=== PATIENT | male | born 1975 | race Caucasian/White ===

== ENCOUNTER 2024-07-09 21:49 | Emergency (ER) | payer SELFPAY ==
[2024-07-09 21:52] VITALS: BP 143/86; PULSE 111; RESP 24; TEMP 36.2; O2SAT 97
--- NOTE | 2024-07-09 22:33 | ED.GENADULT ---
HPI - General Adult General Chief complaint: Shortness of Breath/Dyspnea Stated complaint: short of breath, right arm pain Time Seen by Provider: 07/09/24 22:00 History of Present Illness HPI narrative: This 48-year-old male comes in with a painful red distal right little finger. These symptoms arose since this morning. He has a subungual hematoma now at the base of the nail of the right little finger. He does not report any injury event related to this. He has ecchymosis from a small hematoma on the dorsal aspect of the distal part of his thumb and there is surrounding erythema. He also reports some brief episodes of chest discomfort but denies having any nausea, vomiting, lightheadedness, shortness of breath, or diaphoresis. He does not have any exercise intolerance and no cardiac history. He attributes this to some anxiety. He also reports some reflux symptoms. Related Data Home Medications ?Medication ?Instructions ?Recorded ?Confirmed albuterol sulfate PO 07/09/24 alprazolam .ROUTE 07/09/24 metoprolol succinate PO 07/09/24 oxycodone PO 07/09/24 Allergies Allergy/AdvReac Type Severity Reaction Status Date / Time Sulfa (Sulfonamide Allergy Unknown Verified 07/09/24 21:58 Antibiotics) Review of Systems Status of ROS: Reports: 10 or more systems reviewed and unremarkable except as noted in History and below Narrative: Constitutional: No fevers, no weight gain or loss. Eyes: No discharge. No vision changes. HENT: No congestion, no sore throat, no ear pain. Cardiovascular: No palpitations. Respiratory: No shortness of breath, no wheezes, no cough. Gastrointestinal: No abdominal pain, no vomiting, no diarrhea. Genitourinary: No dysuria, no hematuria. Musculoskeletal: Normal range of motion. Pain in redness with bruising in his right little finger as described above. Skin: No rashes, no pruritis. Neurological: No dizziness, weakness, sensory change, speech change. Endo/Heme/Allergies: No bruising or bleeding. No polydipsia. Pysch: no suicidality, no insomnia. All other systems reviewed and are negative. PFS PFS Social History Smoking Status: Never smoker Second hand tobacco smoke exposure: No How often do you have a drink containing alcohol: never AUDIT-C Alcohol total score: 0 Non-prescribed substance use: denies use Exam Narrative: Exam Narrative: Constitutional: Well-developed, well-nourished, no acute distress. HEENT: Normocephalic, atraumatic. Neck: Normal range of motion. Nontender. Supple. Heart: Intact distal pulses. Lungs: No chest discomfort. No rhonchi, or rales. Bilateral expiratory wheezes. Abdomen: Nontender. Back: Normal range of motion. Extremities: Normal range of motion. The right little finger has bruising and a small hematoma over the dorsal aspect of the distal compartment of that finger involving the base of the nail and they area just proximal to the the nail. there is erythema extending into the middle portion of the finger. Skin: Intact. No rash. Warm. No erythema or pallor. Neurologic: No altered sensation. No weakness. Alert and oriented. Psychiatric: No suicidality. No anxiety or depression. No insomnia. Nursing notes and vitals signs are reviewed. Const: Vital Signs, click to edit/add: Vital Signs - 24 hr 07/09/24 21:52 Temperature 97.1 F L Pulse Rate [Pulse Oximeter] 111 H Respiratory Rate 24 Blood Pressure [Le ft Upper Arm] 143/86 H Pulse Oximetry 97 Oxygen Delivery Me thod Room Air Course Vital Signs Vital signs: Initial Vital Signs Temperature 97.1 F L 07/09/24 21:52 Temperature Source Temporal Artery Scan 07/09/24 21:52 Pulse Rate 111 H 07/09/24 21:52 Respiratory Rate 24 07/09/24 21:52 Blood Pressure 143/86 H 07/09/24 21:52 Blood Pressure Mean 105 07/09/24 21:52 Blood Pressure Position Sitting 07/09/24 21:52 Pulse Oximetry 97 07/09/24 21:52 Oxygen Delivery Method Room Air 07/09/24 21:52 Vital Signs Temperature 97.1 F L 07/09/24 21:52 Pulse Rate 111 H 07/09/24 21:52 Respiratory Rate 24 07/09/24 21:52 Blood Pressure 143/86 H 07/09/24 21:52 Pulse Oximetry 97 07/09/24 21:52 Oxygen Delivery Method Room Air 07/09/24 21:52 Temperature 97.1 F L 07/09/24 21:52 Pulse Rate 111 H 07/09/24 21:52 Respiratory Rate 24 07/09/24 21:52 Blood Pressure 143/86 H 07/09/24 21:52 Pulse Oximetry 97 07/09/24 21:52 Oxygen Delivery Method Room Air 07/09/24 21:52 Medical Decision Making [facility] Narrative Medical decision making narrative: This patient has a painful right little finger and though there is bruising typical of an injury event the patient denies having any such injury or overuse activity. There is also erythema and rather exquisite tenderness suggestive of infection. This is not likely a felon Or herpetic claudy. I did decide to treat with an antibiotic. There is not an obvious benefit to attempt to drain the hematoma. The patient does have bilateral wheezes because of asthma symptoms which are not new for him. He also is reporting some reflux symptoms and requested a GI cocktail. This was administered and also a oral dose of dexamethasone was given. The patient does have inhalers that he can use as needed and directed. I did provide an [facility] prescription for Augmentin. Discharge Plan Discharge Clinical Impression: Finger infection Patient Disposition: Home, Self-Care Condition: Stable Additional Instructions: take medication as prescribed. Follow up with MD return if worsening symptoms occur. Prescriptions: No Action metoprolol succinate PO alprazolam .ROUTE albuterol sulfate [Ventolin] PO oxycodone PO Stand Alone Forms: [facility] Info Instructions
[2024-07-09] MEDS: GI COCKTAIL (VISC LIDO/ANTACID) 30 ML PO (22:37)
[2024-07-09] MEDS: dexAMETHasone 10 MG/ML inj PO (22:37)
[2024-07-09 22:41] VITALS: O2SAT 97
[2024-07-09 22:49] LABS: PCR FLU A Negative PCR FLU A (Negative); PCR FLU B Negative PCR FLU B (Negative); PCR RSV POSITIVE PCR RSV (Negative); SARS PCR* Negative SARS-CoV-2 (Negative)
[2024-07-09 22:52] VITALS: BP 132/74; PULSE 99; RESP 24; TEMP 36.7; O2SAT 97
--- OUTSIDE RECORDS SUMMARY | 2024-07-09 22:59 | XMS_ITS | Data Portability ---
Author Organization [facility] [place] Office Address [address] [address] Assessment No assessment recorded. Plan of Treatment Reminders Order Date Submit Date Provider Last Modified By Organization Details Last Modified Time Details Appointments None recorded. Lab None recorded. Referral pain management referral 2015 016 [facility], [address] [place], [address], 6 14:58:21 Procedures None recorded. Surgeries None recorded. Imaging None recorded. Medication Orders alprazolam 2 mg tablet 2015 016 [id number], [address] [place], [place], [id number], 6 15:48:20 paroxetine 20 mg tablet 2015 016 [id number], [address] [place], [place], [phone], 6 14:14:18 Patient TargetsNo targets recorded. Patient Instructions Encounter Date Encounter Id Patient Instructions Last Modified By Organization Details Last Modified Time 08/08/2015 [id number] controlling your asthma: care instructions Not available 08/08/2015 14:24:53 learning about asthma Not available 08/08/2015 14:24:53 chronic pain: ca re instructions Not available 08/08/2015 14:24:53 high blood pressure: care instructions Not available 08/08/2015 14:24:53 learning about high blood pressure Not available 08/08/2015 14:24:53 attention defici t hyperactivity disorder (ADHD) in adults: care instructions Not available 08/08/2015 14:24:53 Reason for Referral Pain Management Referral for Chronic pain chronic neck pain Referring Physician: Angy Ardon [facility], Encounter Date: 08/08/2015 Problems Name Problem SNOMED Code Status Onset Date Resolution Date Notes Provider Name and Address Organization Details Recorded Time Anxiety 78486819 Active Angy Almazanralph [facility] 6 14:14:18 Chronic pain 14550026 Active Angy Ardon [facility] 6 14:14:18 Asthma 099539314 Active Angy Ardon [facility] 6 14:14:18 Essential hypertension 03890103 Active Angy Ardon [facility] 6 14:14:18 Adult attention deficit hyperactivity disorder 982248083 Active Angy Ardon [facility] 6 14:14:18 Problem Notes None recorded. Medical Equipment None Reported. Allergies No known drug allergies Medications Name Sig Start Date Stop Date Status Note LastModified by Organization Details LastModified Time metoprolol tartrate 100 mg tablet Take 1 tablet every day by oral route for 30 days. active Not Available Not Available No t Available paroxetine 20 mg tablet Take 1 tablet every day by oral route for 30 days. 016 active Not Available Not Available Not Avai lable alprazolam 2 mg tablet Take 1 tablet every day by oral route as needed for 30 days. 016 active Not Available Not Available Not Avai lable Vitals Date Recorded Oxygen saturation Oxygen saturation in Arterial blood by Pulse oximetry Body weight Heart rate Body temperature Systolic blood pressure Diastolic blood pressure Provider Name and Address Organization Details Last Updated DateTime 6 97 % 97 % 755211. 24749 g 122 /min 97.5 [degF] 155 mm[Hg] 100 mm[Hg] Ирина Arias [facility] 6 12:49:22 Social History Question Answer Notes LastModified by Organizat ion Details LastModified Time Tobacco Smoking Status Never Smoker Not Available [employer] 03/22/2020 03:30:10 Do You Have An Advance Directive? No [id number] Information not available 03/22/2020 What Is Your Level Of Alcohol Consumption? None [id number] Information not available 03/22/2020 What Is Your Level Of Caffeine Consumption? Moderate [id number] Information not available 03/22/2020 How Much Tobacco Do You Chew? None [id number] Information not available 03/22/2020 Are You Currently Employed? No [id number] Information not available 03/22/2020 Education 12 Information no t available 08/08/2015 Hard Of Hearing Or Deaf In One Or Both Ears? No Information not available 08/08/2015 Legally Blind In One Or Both Eyes? No Information no t available 08/08/2015 Live Alone Or With Others? With Others Information not available 08/08/2015 What Is Your Relationship Status? [id number] Information not available 03/22/2020 Seat Belts Used Routinely Yes Information not available 08/08/2015 Are You Sexually Active? Yes [id number] Information not available 03/22/2020 General Stress Level Low Information not available 08/08/2015 Do You Use Sunscreen Routinely? Yes [id number] Information not available 03/22/2020 Sex: Unknown Functional Status Question Answer Note LastModified by Organization D etails LastModified Time Are you able to care for yourself? Yes [id number] Information n ot available 03/22/2020 What is your exercise level? None [id number] Information not available 03/22/2020 Mental Status None recorded. Family History Nothing Reported. Medical History Condition Response Coronary Artery Disease N Other N Gout N Kidney Stones N Blood Diseases N Breast Cancer N Blood Transfusion N COPD Y Depression N Lung Disease N Defects or Inherited Disease N Developmental or Behavioral Disorders N Breast Problem N Anxiety Disorder N Muscle, Joint, or Bone Problems N Obesity Y Vision or Eye Problems N Arthritis N Head Injury/Concussion N Polyps N Congenital Anomalies N Cancer N Varicosities N Stroke N Endometriosis N Bladder or Kidney Problems N High Cholesterol N Liver Disease N Headaches N Fibromyalgia N Kidney Disease N Allergies/Hayfever N Heart Problems N Ear or Hearing Problems N Hospitalizations N Thyroid Problems N GI Problems N ADD/ADHD N Skin Problems N Eating Disorder N Anemia N Constipation N Mental Illness N Ovarian Cancer N Diabetes N Seizures/Epilepsy N Tuberculosis N AIDS/HIV N Congestive Heart Failure (CHF) N Eczema N Diverticulitis N Abuse/Domestic Violence N Asthma N Reflux/GERD N Hepatitis N Pulmonary Embolism N Hypertension Y Chronic Ear Infections N Osteoporosis N Chicken Pox N Autism Spectrum Disorder (ASD) N Thrombophilias N Past Encounters Encounter ID Performer Location Encounter Start Date Encounter Closed Date Diagnosis/Indication Diagnosis SNOMED-CT Code Diagnosis ICD10 Code Diagnosis Note [id number] Angy Joneso Office [address] [place] [address] 08/08/2015 12:05:31 08/08/2015 13:05:12 Anxiety 00150849 F41.9 obn reviewed, discussed with patient that psychiatry would be helpful in his case, he refuses at this time. UDS at next visit. Discussed tapering of xanax, pt will think about it. Restart paroxetine as below, black box warning reviewed Chronic pain 16027402 G8 9.29 pt aware we do not manage chronic pain, will refer to pain management for his chronic neck pain Asthma 571920686 J45.90 9 continue inhalers as rxed by pulmonolog y Essential hypertension 62009642 I10 will not be adjusting meds today as pt does not know what he is taking, pt to bring bottle to next visit Adult atte ntion deficit hyperactivity disorder 552477762 F90.9 discussed with patient he will need to bring previous medical records regarding his diagnosis of adult ADHD, pt states he will bring them Health Concerns Section Related Observation LastModified by Organization Detai ls LastModified Time None Recorded Concern Status LastModified by Organization Details LastModified Time None Recorded Advance Directives Directive N: Payers Encounter Date Sequence Insurance Name Policy Number Policy Cabrera Covered Member ID Cabrera Member ID Guarantor Name 08/08/2015 1 [place] Walter Quarles [id number] Walter Quarles Notes Date Note Type Note Provider Name and Address Organization Details Recorded Time 08/08/2015 text/html New pt with extensive history. Has HTN, on what sounds like metoprolol but pt not sure, did not take any medication today. Reports some left sided paralysis in Mar 2015 that almost completely resolved with TPA in the ER but pt states he did not have a stroke. Has been in physical therapy to make his left leg stronger for past three months and feels his paralysis is gone, would like to return to work. Is on xanax chronically for anxiety, has anger issues per , was previously on paroxetine which helped. Also has chronic neck pain for which he refuses to get surgery for bulging discs, is interested in pain management. OBN report shows multiple different providers prescribing narcotics, pt states he recently had dental surgery. Would like to get back on percocet and adderall. Also has hx of COPD/asthma, goes to pulmonology. Non-smoker. Angy yañez, [place] [facility] 08/08/2015 14:14:27
--- OUTSIDE RECORDS SUMMARY | 2024-07-09 22:59 | XMS_ITS | Continuity of Care Document ---
Author Organization [facility] Address [address] [place] [address] Encounter [facility] [id number] Date(s): 07/08/24 - 07/08/[address] [phone] Encounter Diagnosis Cough(Discharge Diagnosis) - 07/08/24 Viral illness(Discharge Diagnosis) - 07/08/24 Discharge Disposition: Home or Self Care Attending Physician: Cedric Childs MD Admitting Physician: Cedric Childs MD Referring Physician: Cedric Childs MD Encounter Type: Emergency Allergies, Adverse Reactions, Alerts Substance Criticality Severity Reaction Reaction Severity Status Sulfabenzamide/Sulfacetam sharon/Sulfathiazole High criticality Severe Active Assessment and Plan Extracted from: Title:ED Provider Note Author:Cedric Childs MD Date :07/08/24 Assessment/Plan 1. Cough R05.9 Ordered: THP ondansetron (Zofran), 4 tab, Oral, Tab-Dis, Once, First Dose: 07/08/24 4:10:00 MST, Stop Date: 07/08/24 4:10:00 MST, Physician Stop, STAT Discharge Patient, 07/08/24 4:10:00 MST 2. Viral illness B34.9 Ordered: THP ondansetron (Zofran), 4 tab, Oral, Tab-Dis, Once, First Dose: 07/08/24 4:10:00 MST, Stop Date: 07/08/24 4:10:00 MST, Physician Stop, STAT Discharge Patient, 07/08/24 4:10:00 MST Orders: ondansetron, 4 mg = 1 tab, Oral, Tab-Dis, Once, First Dose: 07/08/24 4:05:00 MST, Stop Date: 07/08/24 4:05:00 MST, Physician Stop, STAT Patient Education Viral Respiratory Infection Viral Respiratory Infection, Mtfl-Fx-Tyyi Follow Up With When Contact Information primary Care Additional Instructions: Medications albuterol 0 Refill(s) Start Date: 07/08/24 Status: Ordered Repeat number: 1 Bystolic 0 Refill(s) Start Date: 07/08/24 Status: Ordered Repeat number: 1 metoprolol succinate 0 Refill(s) Start Date: 07/08/24 Status: Ordered Repeat number: 1 Zofran 0 Refill(s) Start Date: 07/08/24 Status: Ordered Repeat number: 1 Problem List Condition Confirmation Course Effective Dates Status [facility] Informant Cough Confirmed Active Viral illness Confirmed Active Results Laboratory List Name Date Influenza A/B (ID NOW) 07/08/24 SARS-CoV-2 (COVID-19) RNA (ID Now) (COVI D 19 (ID Now)) 07/08/24 Most recent to oldest [Reference Range]: 1 Influenza A -IDNOW [Not Detected] Not De tected (07/08/24 2:22 AM) Influenza B -IDNOW [Flu B RNA Neg] Flu B RNA Neg (07/08/24 2:22 AM) SARS-CoV-2 (COVID-19) RNA (ID Now) [Pres umptive Neg] Presumptive Neg 1 (07/08/24 2:22 AM) 1Interpretive Data: The ID NOW COVID-19 is a rapid molecular NAAT assay. This test has received FDA Emergency Use Authorization for respiratory specimens collected from individuals who are suspected of COVID-19 b their healthcare provider within the first seven days of onset of symptoms. Utilization of this test in other settings, such as testing of asymptomatic patients is not currently within scope of the FDA authorization and would be considered off- label use. A positive result indicates that RNA from SARS-CoV-2 was detected. There is a small possibility of a false-positive result, particularly when used in a population without many cases of COVID-19 infection.Negative results should be treated as presumptive and, if inconsistent with clinical signs and symptoms or if necessary for patient management, should be tested with an alternative method. www.cdc.gov/COVID19 Radiology Reports * Exam Date Time Procedure Performing Provider Status 07/08/24 2:43 AM XR Chest 1 View Auth (Yareli ified) Notes: (XR Chest 1 View) Reason For Exam: Cough XR Chest 1 View Exam:XR CHEST 1 VIEW Date:07/08/2024 5:00 AM [facility] Indication:Cough Comparison:None Findings: The cardiomediastinal silhouette is within normal limits. No evidence of pleural effusion, pneumothorax, or focal consolidation. Impression: No acute cardiopulmonary findings. Electronically signed by: Brian Lopes MD 07/08/2024 04:[address] [facility] Final Dictated by: Brian Lopes MD Dictated DT/TM: 07/08/2024 4:00 am Signed by: Brian Lopes MD Signed (Electronic Signature): 07/08/2024 2:43 am Transcribed by: KRISSY Vital Signs Most recent to oldest [Reference Range]: 1 2 3 Temperature Temporal Artery [36-38 Deg C] 36.9 Deg C (07/08/24 2:08 AM) Peripheral Pulse Rate [60-100 bpm] 78 bpm (07/08/24 2:08 AM) Heart Rate Monitored [60-100 bpm] 71 bpm (07/08/24 4:15 AM) 69 bpm (07/08/24 4:00 AM) 73 bpm (07/08/24 3:46 AM) Respiratory Rate [12-24 br/min] 20 br/min (07/08/24 4:15 AM) 22 br/min (07/08/24 3:30 AM) 22 br/min (07/08/24 3:15 AM) Blood Pressure [90-120/60-80 mmHg] 146/98mmHg *HI* (07/08/24 4:15 AM) 149/106mmHg *HI* (07/08/24 3:46 AM) 109/75mmHg (07/08/24 3:30 AM) Mean Arterial Pressure, Cuff [65-140 mmHg] 114 mmHg (07/08/24 4:15 AM) 120 mmHg (07/08/24 3:46 AM) 86 mmHg (07/08/24 3:30 AM) Mean Arterial Pressure Cuff [65-140 mmHg] 117 mmHg (07/08/24 3:46 AM) 88 mmHg (07/08/24 3:30 AM) 103 mmHg (07/08/24 3:15 AM) Weight 104.7 kg (07/08/24 2:08 AM) Weight Dosing 104.700 kg (07/08/24 2:08 AM) Social History Social History Type Response Tobacco Never tobacco user T obacco Use:. Sex Sex Representation Male (finding) Hospital Discharge Instructions Patient Education 07/08/2024 05:12:46 Viral Respiratory Infection Viral Respiratory Infection A respiratory infection is an illness that affects part of the respiratory system, such as the lungs, nose, or throat. A respiratory infection that is caused by a virus is called a viral respiratory infection. Common types of viral respiratory infections include: ??? A cold. ??? The flu (influenza). ??? A respiratory syncytial virus (RSV) infection. What are the causes? This condition is caused by a virus. The virus may spread through contact with droplets or direct contact with infected people or their mucus or secretions. The virus may spread from person to person(is contagious). What are the signs or symptoms? Symptoms of this condition include: ??? A stuffy or runny nose. ??? A sore throat or cough. ??? Shortness of breath or difficulty breathing. ??? Yellow or green mucus (sputum). Other symptoms may include: ??? A fever. ??? Sweating or chills. ??? Fatigue. ??? Achy muscles. ??? A headache. How is this diagnosed? This condition may be diagnosed based on: ??? Your symptoms. ??? A physical exam. ??? Testing of secretions from the nose or throat. ??? Chest X-ray. How is this treated? This condition may be treated with medicines, such as: ??? Antiviral medicine. This may shorten the length of time a person has symptoms. ??? Expectorants. These make it easier to cough up mucus. ??? Decongestant nasal sprays. ??? Acetaminophen or NSAIDs, such as ibuprofen, to relieve fever and pain. Antibiotic medicines are not prescribed for viral infections.This is because antibiotics are designed to kill bacteria. They do not kill viruses. Follow these instructions at home: Managing pain and congestion ??? Take gtie-jls-addxkub and prescription medicines only as told by your health care provider. ??? If you have a sore throat, gargle with a mixture of salt and water 3???4 times a day or as needed. To make salt water, completely dissolve ?1 tsp (3???6 g) of salt in 1 cup (237 mL) of warm water. ??? Use nose drops made from salt water to ease congestion and soften raw skin around your nose. ??? Take 2 tsp (10 mL) of honey at bedtime to lessen coughing at night. ??? Do not give honey to children who are younger than 1 year. ??? Drink enough fluid to keep your urine pale yellow. This helps prevent dehydration and helps loosen up mucus. General instructions ??? Rest as much as possible. ??? Do not drink alcohol. ??? Do not use any products that contain nicotine or tobacco. These products include cigarettes, chewing tobacco, and vaping devices, such as e-cigarettes. If you need help quitting, ask your health care provider. ??? Keep all follow-up visits. This is important. How is this prevented? Get an annual flu shot. You may get the flu shot in late summer, fall, or winter. Ask your health care provider when you should get your flu shot. ??? Avoid spreading your infection to other people. If you are sick: ??? Wash your hands with soap and water often, especially after you cough or sneeze. Wash for at least 20 seconds. If soap and water are not available, use alcohol-based hand hospital insurance representative. ??? Cover your mouth when you cough. Cover your nose and mouth when you sneeze. ??? Do not share cups or eating utensils. ??? Clean commonly used objects often. Clean commonly touched surfaces. ??? Stay home from work or school as told by your health care provider. ??? Avoid contact with people who are sick during cold and flu season. This is generally fall and winter. Contact a health care provider if: ??? Your symptoms last for 10 days or longer. ??? Your symptoms get worse over time. ??? You have severe sinus pain in your face or forehead. ??? The glands in your jaw or neck become very swollen. ??? You have shortness of breath. Get help right away if you: ??? Feel pain or pressure in your chest. ??? Have trouble breathing. ??? Faint or feel like you will faint. ??? Have severe and persistent vomiting. ??? Feel confused or disoriented. These symptoms may represent a serious problem that is an emergency. Do not wait to see if the symptoms will go away. Get medical help right away. Call your local emergency services (911 in the [place] Do not drive yourself to the hospital. Summary ??? A respiratory infection is an illness that affects part of the respiratory system, such as the lungs, nose, or throat. A respiratory infection that is caused by a virus is called a viral respiratory infection. ??? Common types of viral respiratory infections include a cold, influenza, and respiratory syncytial virus (RSV) infection. ??? Symptoms of this condition include a stuffy or runny nose, cough, fatigue, achy muscles, sore throat, and fevers or chills. ??? Antibiotic medicines are not prescribed for viral infections. This is because antibiotics are designed to kill bacteria. They are not effective against viruses. This information is not intended to replace advice given to you by your health care provider. Make sure you discuss any questions you have with your health care provider. Document Revised: 2021 Document Reviewed: 2021 [employer] Patient Education ?? 2022 [employer]. 07/08/2024 05:09:40 Viral Respiratory Infection, Vpom-Fq-Iphe Viral Respiratory Infection A viral respiratory infection is an illness that affects parts of the body that are used for breathing. These include the lungs, nose, and throat. It is caused by a germ called a virus. Some examples of this kind of infection are: ??? A cold. ??? The flu (influenza). ??? A respiratory syncytial virus (RSV) infection. What are the causes? This condition is caused by a virus. It spreads from person to person. You can get the virus if: ??? You breathe in droplets from someone who is sick. ??? You come in contact with people who are sick. ??? You touch mucus or other fluid from a person who is sick. What are the signs or symptoms? Symptoms of this condition include: ??? A stuffy or runny nose. ??? A sore throat. ??? A cough. ??? Shortness of breath. ??? Trouble breathing. ??? Yellow or green fluid in the nose. Other symptoms may include: ??? A fever. ??? Sweating or chills. ??? Tiredness (fatigue). ??? Achy muscles. ??? A headache. How is this treated? This condition may be treated with: ??? Medicines that treat viruses. ??? Medicines that make it easy to breathe. ??? Medicines that are sprayed into the nose. ??? Acetaminophen or NSAIDs, such as ibuprofen, to treat fever. Follow these instructions at home: Managing pain and congestion ??? Take rdxq-zii-ngsxqce and prescription medicines only as told by your doctor. ??? If you have a sore throat, gargle with salt water. Do this 3???4 times a day or as needed. ??? To make salt water, dissolve ?1 tsp (3???6 g) of salt in 1 cup (237 mL) of warm water. Makesure that all the salt dissolves. ??? Use nose drops made from salt water. This helps with stuffiness (congestion). It also helps soften the skin around your nose. ??? Take 2 tsp (10 mL) of honey at bedtime to lessen coughing at night. ??? Do not give honey to children who are younger than 1 year old. ??? Drink enough fluid to keep your pee (urine) pale yellow. General instructions ??? Rest as much as possible. ??? Do not drink alcohol. ??? Do not smoke or use any products that contain nicotine or tobacco. If you need help quitting, ask your doctor. ??? Keep all follow-up visits. How is this prevented? Get a flu shot every year. Ask your doctor when you should get your flu shot. ??? Do not let other people get your germs. If you are sick: ??? Wash your hands with soap and water often. Wash your hands after you cough or sneeze. Wash hands for at least 20 seconds. If you cannot use soap and water, use hand hospital insurance representative. ??? Cover your mouth when you cough. Cover your nose and mouth when you sneeze. ??? Do not share cups or eating utensils. ??? Clean commonly used objects often. Clean commonly touched surfaces. ??? Stay home from work or school. ??? Avoid contact with people who are sick during cold and flu season. This is in fall and winter. Get help if: ??? Your symptoms last for 10 days or longer. ??? Your symptoms get worse over time. ??? You have very bad pain in your face or forehead. ??? Parts of your jaw or neck get very swollen. ??? You have shortness of breath. Get help right away if: ??? You feel pain or pressure in your chest. ??? You have trouble breathing. ??? You faint or feel like you will faint. ??? You keep vomiting and it gets worse. ??? You feel confused. These symptoms may be an emergency. Get help right away. Call your local emergency services (911 int [place] ??? Do not wait to see if the symptoms will go away. ??? Do not drive yourself to the hospital. Summary ??? A viral respiratory infection is an illness that affects parts of the body that are used for breathing. ??? Examples of this illness include a cold, the flu, and a respiratory syncytial virus (RSV) infection. ??? The infection can cause a runny nose, cough, sore throat, and fever. ??? Follow what your doctor tells you about taking medicines, drinking lots of fluid, washing your hands, resting at home, and avoiding people who are sick. This information is not intended to replace advice given to you by your health care provider. Make sure you discuss any questions you have with your health care provider. Document Revised: 2021 Document Reviewed: 2021 [employer] Patient Education ?? 2022 [employer]. Follow Up Care 07/08/2024 01:54:34 With:primary Care Address: When: Unknown Physician Emergency department Note * Cedric Childs MD: PERFORM Event Display: ED Note Physician Authored Date: [id number] JESUS ALBERTO VO :1975 Age:48 years Sex:Male Visit Date:07/08/2024 Basic Information Time Seen: Cedric Childs MD / 07/08/2024 02:22 Chief Complaint SOB, with fever and cough X 3 days History Of Present Illness: Patient presents with cough since Saturday which is 3 days now.?? Bring up occasional phlegm.?? He feels some body aches sweats chills and nausea without emesis.?? He has not had a flu shot this year Review of Systems: Constitutional:??no??fever,??no??chills,??no??sweats,??no??weakness Respiratory:??no??shortness of breath,??moderate??cough Cardiovascular:??no??chest pain Additional ROS info: Except as noted in the above Review of Systems and in the History of Present Illness all other systems have been reviewed and are negative or noncontributory.?? Physical Exam Vitals & Measurements T:??36.9?C ??(Temporal Artery)?? HR:??69??(Monitored)?? RR:??22?? BP:??149/106?? SpO2:??94%?? WT:??104.7??kg?? O2 Therapy:??Room air?? General: well-developed, no apparent distress HEENT: PERRLA, EOMI, nares noncongested, OP moist Neck: symmetrical and supple, no lymphadenopathy Resp: clear to auscultation bilaterally; no wheezes, rales, or rhonchi CV: Regular Rate and Rhythm without murmur Abdomen: soft, nontender, nondistended Skin: no rash Neuro: no gross deficits Medical Decision Making: Patient provided the history.?? Patient arrived at the emergency department via private own vehicle. ?? Differential Diagnosis includes but is not limited to:Influenza, viral illness, pneumonia ?? Chest film was clear fluid test is negative patient is experiencing some nausea provided ondansetron. ?? The results of pertinent diagnostic studies and/or exam findings were discussed. The patient???sprovisional diagnosis and plan of care were discussed with the patient and present family. The patient and/or present family expressed understanding of the diagnosis and plan. The??patient or patientcaregivers were??provided written instructions and appropriate follow-up information. The patient understands their need and responsibility to obtain additional follow-up as instructed. The risks of medications administered and prescribed were discussed with the patient and family present.??Please note voice recognition is used in the construction of this note there is always a slight chance of va riation in the computers comprehension and results.?? Procedure No Qualifying Data Assessment/Plan 1.??Cough??R05.9 Ordered: THP ondansetron (Zofran), 4 tab, Oral, Tab-Dis, Once, First Dose: 07/08/24 4:10:00 MST, Stop Date: 07/08/24 4:10:00 MST, Physician Stop, STAT Discharge Patient, 07/08/24 4:10:00 MST ?? 2.??Viral illness??B34.9 Ordered: THP ondansetron (Zofran), 4 tab, Oral, Tab-Dis, Once, First Dose: 07/08/24 4:10:00 MST, Stop Date: 07/08/24 4:10:00 MST, Physician Stop, STAT Discharge Patient, 07/08/24 4:10:00 MST ?? Orders: ondansetron, 4 mg = 1 tab, Oral, Tab-Dis, Once, First Dose: 07/08/24 4:05:00 MST, Stop Date: 07/08/24 4:05:00 MST, Physician Stop, STAT Patient Education Viral Respiratory Infection Viral Respiratory Infection, Qjyu-Zg-Wtlc Follow Up With When Contact Information primary Care Additional Instructions: Medication Reconciliation Unchanged albuterol ?? metoprolol (metoprolol succinate) ?? nebivolol (Bystolic) ?? ondansetron (Zofran) Problem List/Past Medical History Ongoing Cough Viral illness Historical No qualifying data Allergies Sulfabenzamide/Sulfacetamide/Sulfathiazole Social History Electronic Cigarette/Vaping Electronic Cigarette Use: Never. Tobacco Never tobacco user Tobacco Use:. Diagnostic Results XR Chest 1 View 07/08/2024 04:03 MST XR Chest 1 View ?? 07/08/24 02:43:22 Exam:XR CHEST 1 VIEW Date:07/08/2024 5:00 AM [facility] Indication:Cough Comparison:None ?? Findings: The cardiomediastinal silhouette is within normal limits. No evidence of pleural effusion, pneumothorax, or focal consolidation. ?? Impression: No acute cardiopulmonary findings. ?? Electronically signed by: ?? Signed By: Brian Lopes MD Lab Results Infectious Disease?? LATEST RESULTS?? Influenza A -IDNOW?? 07/08/24 02:22?? Not Detected?? Influenza B -IDNOW?? 07/08/24 02:22?? Flu B RNA Neg?? SARS-CoV-2 (COVID-19) RNA (ID Now)?? 07/08/24 02:22?? Presumptive Neg? Electronically Signed on 07/08/2024 04:13 MST Cedric Childs MD Emergency department Discharge instructions * Cedric Childs MD: PERFORM Event Display: ED Discharge Information Authored Date: [id number] JESUS ALBERTO VO :1975 Age:48 years Sex:Male Visit Date:07/08/2024 Discharge Instructions We would like to thank you for allowing us to assist you with your healthcare needs. The following includes patient education materials and information regarding your injury/illness. Diagnosis from Today's Visit Cough Viral illness Discharge Vitals Temperature??(Temporal Artery) 98.4 ??F (36.9 ??C) Heart Rate??(Monitored) 69 Respiratory Rate?? 22 Blood Pressure?? 149/106?? SpO2?? 94% Weight?? 230.86 lb (104.7 kg) Allergies Sulfabenzamide/Sulfacetamide/Sulfathiazole What to Do Next Instructions from Your Care Team You have been given ondansetron tablets take 1 every 6 hours as needed for nausea. Use Tylenol or ibuprofen as necessary.?? This will take a few days to get over that should be self-limited You Need to Schedule the Following Appointments Follow Up with??primary Care You were treated today on an emergency basis; it may be scales to contact your primary care provider to notify them of your visit today. You may have been referred to your regular doctor or a specialist, please follow up as instructed. If your condition worsens or you can't get in to see the doctor, contact the Emergency Department. Medications What When Instructions Next Dose Unchanged albuterol Unchanged metoprolol (metoprolol succinate) Unchanged nebivolol (Bystolic) Unchanged ondansetron (Zofran) Education Materials Viral Respiratory Infection A respiratory infection is an illness that affects part of the respiratory system, such as the lungs, nose, or throat. A respiratory infection that is caused by a virus is called a viral respiratory infection. Common types of viral respiratory infections include: ? A cold. ? The flu (influenza). ? A respiratory syncytial virus (RSV) infection. What are the causes? This condition is caused by a virus. The virus may spread through contact with droplets or direct contact with infected people or their mucus or secretions. The virus may spread from person to person(is contagious). What are the signs or symptoms? Symptoms of this condition include: ? A stuffy or runny nose. ? A sore throat or cough. ? Shortness of breath or difficulty breathing. ? Yellow or green mucus (sputum). Other symptoms may include: ? A fever. ? Sweating or chills. ? Fatigue. ? Achy muscles. ? A headache. How is this diagnosed? This condition may be diagnosed based on: ? Your symptoms. ? A physical exam. ? Testing of secretions from the nose or throat. ? Chest X-ray. How is this treated? This condition may be treated with medicines, such as: ? Antiviral medicine. This may shorten the length of time a person has symptoms. ? Expectorants. These make it easier to cough up mucus. ? Decongestant nasal sprays. ? Acetaminophen or NSAIDs, such as ibuprofen, to relieve fever and pain. Antibiotic medicines are not prescribed for viral infections.This is because antibiotics are designed to kill bacteria. They do not kill viruses. Follow these instructions at home: Managing pain and congestion ? Take nqhb-oyu-ioghtat and prescription medicines only as told by your health care provider. ? If you have a sore throat, gargle with a mixture of salt and water 3???4 times a day or as needed. To make salt water, completely dissolve ?1 tsp (3???6 g) of salt in 1 cup (237 mL) of warm water. ? Use nose drops made from salt water to ease congestion and soften raw skin around your nose. ? Take 2 tsp (10 mL) of honey at bedtime to lessen coughing at night. ? Do not give honey to children who are younger than 1 year. ? Drink enough fluid to keep your urine pale yellow. This helps prevent dehydration and helps loosen up mucus. General instructions ? Rest as much as possible. ? Do not drink alcohol. ? Do not use any products that contain nicotine or tobacco. These products include cigarettes, chewing tobacco, and vaping devices, such as e-cigarettes. If you need help quitting, ask your health careprovider. ? Keep all follow-up visits. This is important. How is this prevented? Get an annual flu shot. You may get the flu shot in late summer, fall, or winter. Ask your health care provider when you should get your flu shot. ? Avoid spreading your infection to other people. If you are sick: ? Wash your hands with soap and water often, especially after you cough or sneeze. Wash for at least 20 seconds. If soap and water are not available, use alcohol- based hand hospital insurance representative. ? Cover your mouth when you cough. Cover your nose and mouth when you sneeze. ? Do not share cups or eating utensils. ? Clean commonly used objects often. Clean commonly touched surfaces. ? Stay home from work or school as told by your health care provider. ? Avoid contact with people who are sick during cold and flu season. This is generally fall and winter. Contact a health care provider if: ? Your symptoms last for 10 days or longer. ? Your symptoms get worse over time. ? You have severe sinus pain in your face or forehead. ? The glands in your jaw or neck become very swollen. ? You have shortness of breath. Get help right away if you: ? Feel pain or pressure in your chest. ? Have trouble breathing. ? Faint or feel like you will faint. ? Have severe and persistent vomiting. ? Feel confused or disoriented. These symptoms may represent a serious problem that is an emergency. Do not wait to see if the symptoms will go away. Get medical help right away. Call your local emergency services (911 in the [place] Do not drive yourself to the hospital. Summary ? A respiratory infection is an illness that affects part of the respiratory system, such as the lungs, nose, or throat. A respiratory infection that is caused by a virus is called a viral respiratory infection. ? Common types of viral respiratory infections include a cold, influenza, and respiratory syncytial virus (RSV) infection. ? Symptoms of this condition include a stuffy or runny nose, cough, fatigue, achy muscles, sore throat, and fevers or chills. ? Antibiotic medicines are not prescribed for viral infections. This is because antibiotics are designed to kill bacteria. They are not effective against viruses. This information is not intended to replace advice given to you by your health care provider. Make sure you discuss any questions you have with your health care provider. Document Revised: 2021 Document Reviewed: 2021 [employer] Patient Education ?? 2022 [employer] Viral Respiratory Infection A viral respiratory infection is an illness that affects parts of the body that are used for breathing. These include the lungs, nose, and throat. It is caused by a germ called a virus. Some examples of this kind of infection are: ? A cold. ? The flu (influenza). ? A respiratory syncytial virus (RSV) infection. What are the causes? This condition is caused by a virus. It spreads from person to person. You can get the virus if: ? You breathe in droplets from someone who is sick. ? You come in contact with people who are sick. ? You touch mucus or other fluid from a person who is sick. What are the signs or symptoms? Symptoms of this condition include: ? A stuffy or runny nose. ? A sore throat. ? A cough. ? Shortness of breath. ? Trouble breathing. ? Yellow or green fluid in the nose. Other symptoms may include: ? A fever. ? Sweating or chills. ? Tiredness (fatigue). ? Achy muscles. ? A headache. How is this treated? This condition may be treated with: ? Medicines that treat viruses. ? Medicines that make it easy to breathe. ? Medicines that are sprayed into the nose. ? Acetaminophen or NSAIDs, such as ibuprofen, to treat fever. Follow these instructions at home: Managing pain and congestion ? Take [id number] and prescription medicines only as told by your doctor. ? If you have a sore throat, gargle with salt water. Do this 3???4 times a day or as needed. ? To make salt water, dissolve ?1 tsp (3???6 g) of salt in 1 cup (237 mL) of warm water. Make sure that all the salt dissolves. ? Use nose drops made from salt water. This helps with stuffiness (congestion). It also helps soften the skin around your nose. ? Take 2 tsp (10 mL) of honey at bedtime to lessen coughing at night. ? Do not give honey to children who are younger than 1 year old. ? Drink enough fluid to keep your pee (urine) pale yellow. General instructions ? Rest as much as possible. ? Do not drink alcohol. ? Do not smoke or use any products that contain nicotine or tobacco. If you need help quitting, ask your doctor. ? Keep all follow-up visits. How is this prevented? Get a flu shot every year. Ask your doctor when you should get your flu shot. ? Do not let other people get your germs. If you are sick: ? Wash your hands with soap and water often. Wash your hands after you cough or sneeze. Wash hands for at least 20 seconds. If you cannot use soap and water, use hand hospital insurance representative. ? Cover your mouth when you cough. Cover your nose and mouth when you sneeze. ? Do not share cups or eating utensils. ? Clean commonly used objects often. Clean commonly touched surfaces. ? Stay home from work or school. ? Avoid contact with people who are sick during cold and flu season. This is in fall and winter. Get help if: ? Your symptoms last for 10 days or longer. ? Your symptoms get worse over time. ? You have very bad pain in your face or forehead. ? Parts of your jaw or neck get very swollen. ? You have shortness of breath. Get help right away if: ? You feel pain or pressure in your chest. ? You have trouble breathing. ? You faint or feel like you will faint. ? You keep vomiting and it gets worse. ? You feel confused. These symptoms may be an emergency. Get help right away. Call your local emergency services ([facility] [place] ? Do not wait to see if the symptoms will go away. ? Do not drive yourself to the hospital. Summary ? A viral respiratory infection is an illness that affects parts of the body that are used for breathing. ? Examples of this illness include a cold, the flu, and a respiratory syncytial virus (RSV) infection. ? The infection can cause a runny nose, cough, sore throat, and fever. ? Follow what your doctor tells you about taking medicines, drinking lots of fluid, washing your hands, resting at home, and avoiding people who are sick. This information is not intended to replace advice given to you by your health care provider. Make sure you discuss any questions you have with your health care provider. Document Revised: 2021 Document Reviewed: 2021 [employer] Patient Education ?? 2022 [employer] Tests Performed Radiology XR Chest 1 View 07/08/2024 04:03 MST Lab Test Name Test Result Date/Time Influenza A -IDNOW Flu A Viral RNA Not Detected 07/08/2024 02:22 MST Influenza B -IDNOW Flu B Viral RNA Not Detected 07/08/2024 02:22 MST SARS-CoV-2 (COVID-19) RNA (ID Now) Presumptive Neg-NEG 07/08/2024 02:22 MST Patient/Manager Filter Signature Patient Name:JESUS ALBERTO VO I have received this information and my questions have been answered. Patient/Manager Filter Name: Patient/Manager Filter Signature: Relationship to Patient: Witness Name/Signature: Date: Electronically Signed on: 07/08/2024 04:13 MSTSigned by:PAUL Insurance Providers Guarantor name: JESUS ALBERTO VO Health Plan Information #: 2 Payer: SELF PAY Member Number: NA Policy Number: NA Group Number: NA Payer Identifier: [id number]
--- OUTSIDE RECORDS SUMMARY | 2024-07-09 22:59 | XMS_ITS | Clinical Summary ---
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 10/21/19 24 Active albuterol 2.5 mg /3 mL (0.083 %) nebulizer solution Take by nebulization every 4 (four) hours if needed for wheezing or shortness of breath. 10/21/19 24 Active ALPRAZolam (XANAX) 2 mg tablet Take 1 tablet (2 mg total) by mouth 3 (three) times per day. 11/13/19 24 Active dextroamphetamine- amphetamine (ADDERALL) 30 mg tablet Take 1 tablet (30 mg total) by mouth 2 (two) times per day. 09/24/19 24 Active HYDROcodone-acetam inophen (NORCO) 10-325 mg per tablet Take 1 tablet by mouth every 6 (six) hours. 11/13/19 24 Active metoprolol tartrate (LOPRESSOR) 25 mg tablet Take 1 tablet (25 mg total) by mouth 2 (two) times per day. 11/07/19 24 Active ondansetron ODT (ZOFRAN-ODT) 4 mg disintegrating tablet Take 1 tablet (4 mg total) by mouth. 11/07/19 Active zolpidem (AMBIEN) 10 mg tablet Take 1 tablet (10 mg total) by mouth every night. 11/13/19 Active Active Problems Problem Noted Date Diagnosed Date Preoperative cardiovascular examination 11/28/19 History of tobacco use 11/28/2023 Family history of coronary artery disease 2023 Adult attention deficit hyperactivity disorder 0 11/27/2023 Anxiety 11/27/2023 Asthma 11/27/2023 Essential hypertension 11/27/2023 Chronic pain 11/27/2023 Renal artery aneurysm 11/27/2023 Paronychia of left middle finger 07/26/2017 Overview (11/27/2023): Overview: S/p I and D Acute pancreatitis 07/23/2017 Chest pain 07/23/2017 Social History Tobacco Use Types Packs/Day Years Used Date Smoking Tobacco: Every Day Cigarettes Smokeless Tobacco: Never Tobacco Cessation:Ready to Q uit: Not Asked; Counseling Given: Not Answered Alcohol Use Standard Drinks/Week Comments Yes 1 (1 standard drink = 0.6 oz pur e alcohol) Utilities Answer Date Recorded In the past 12 months has th e electric, gas, oil, or water [employer] threatened to shut off services in your home? No 11/27/2023 Overall Financial Resource Strain (CARDIA) Answe r Date Recorded How hard is it for you to pa y for the very basics like food, housing, medical care, and heating? Not hard at all 11/27/2023 Hunger Vital Sign Answer Date Recorded Within the past 12 months, y ou worried that your food would run out before you got the money to buy more. Never true 11/27/19 Within the past 12 months, t he food you bought just didn't last and you didn't have money to get more. Never true 11/27/2023 PRAPARE - Transportation Answer Date Re corded In the past 12 months, has l ack of transportation kept you from medical appointments or from getting medications? No 11/17 In the past 12 months, has l ack of transportation kept you from meetings, work, or from getting things needed for daily living? No 11/27/2023 Housing Stability Vital Sign Answer Remberto e Recorded In the last 12 months, was t here a time when you were not able to pay the mortgage or rent on time? No 11/27/2023 In the past 12 months, how m any times have you moved where you were living? 0 11/27/2023 At any time in the past [address] [facility], were you homeless or living in a longterm (including now)? No 11/27/2023 Interpersonal Safety Answer Date Record ed Safe in Home Yes 11/27/2023 Are you in immediate danger? Not on file 02/2024 Is your partner at the health facility now? Not on file 11/27/2023 Do you want to (or have to) go home with your pa rtner? Not on file 11/27/2023 Do you have someplace safe to go? Not on file 11/27/2023 Have there been threats or d irect abuse of you or your children? No 11/27/2023 When did the abuse occur? Not on file 2023 Do you feel you are still at risk? Not on file 11/27/2023 Are you in contact with your ex-partner or do you share children or custody? Not on file 11/27/2023 Are you afraid your life may be in danger? Not o n file 11/27/2023 Has the violence gotten wors e or is it getting scarier? More often? Not on file 11/27/2023 Has anyone ever choked or tried to choke you? No 11/27/2023 Do you feel you are still at risk for choking? N ot on file 11/27/2023 Are you in contact with ex-p artner who choked or attempted to choke you? or do you share children or custody? Not on file 02/2024 Are you afraid your life may be in danger due to choking? Not on file 11/27/2023 Has the choking gotten worse or is it getting scarier? More often? Not on file 11/27/2023 Has your partner used weapons, alcohol or drugs? Not on file 11/27/2023 Has your partner ever held y ou or your children against your will? Not on file 11/27/2023 Does your partner ever watch you closely, follow you or stalk you? Not on file 11/27/2023 Has your partner ever threat ened to kill you, him/herself or your children? Not on file 11/27/2023 When did the choking or choking attempt occur? N ot on file 11/27/2023 Do you feel you are still at risk for choking? N ot on file 11/27/2023 Safe in Relationship Yes 11/27/2023 Sex and Gender Information Value Date Recorded Sex Assigned at Not on file Legal Sex Male 1:33 PM CDT Gender Identity Not on file Sexual Orientation Not on file Last Filed Vital Signs Vital Sign Reading Time Taken Comments Blood Pressure 108/58 11/28/2023 3:23 PM CDT Pulse 78 11/28/2023 3:23 PM CDT Temperature 36.1 C (97 F) 11/28/2023 3:23 PM CDT Respiratory Rate 18 11/28/2023 3:23 PM CDT Oxygen Saturation 95% 11/28/2023 3:23 PM CDT Inhaled Oxygen Concentration - - Weight 106 kg (234 lb) 11/27/2023 5:34 PM CDT Height 165.1 cm (5' 5) 11/27/2023 5:34 PM CDT Body Mass Index 38.94 11/27/2023 5:34 PM CDT Plan of Treatment Health Maintenance Due Date Last Done Comments CT Colonography 1973 Cologuard 1973 Colonoscopy 1973 Colorectal Cancer Screening 1973 Preventative Visit 18-64 1973 MMR Vaccines (1 of 1 - Standard series) 1974 Pneumococcal (1 of 2 - PCV) 08/11/1979 Varicella Vaccines (1 of 2 - 13+ 2-dose series) 1986 Hepatitis C Screening 08/11/1991 Hepatitis B Vaccines (1 of 3 - 19+ 3-dose series) 1992 Pneumococcal 50+ Yr (1 of 2 - PCV) 1992 FOBT/FIT 2018 Sigmoidoscopy 2018 Lipid Panel 08/08/2020 08/09/2015 Zoster Vaccines (1 of 2) 08/11/2023 Influenza Vaccine (#1) 12/19/2023200 6, 03/24/2002, 04/15/1996 COVID-19 Vaccine (1 - 2023-2 5 season) 2024 Depression Screening 05/20/2024 DTaP,Tdap,and Td Vaccines (2 - Td or Tdap) 10/09/2027 10/08/2017 RSV Vaccine (1 - 1-dose 75+ series) 2048 HIB Vaccines Aged Out No longer eligi ble based on patient's age to complete this topic HPV Vaccines Aged Out No longer eligi ble based on patient's age to complete this topic Hepatitis A Vaccines Aged Out No long er eligible based on patient's age to complete this topic IPV Vaccines Aged Out No longer eligi ble based on patient's age to complete this topic Meningococcal B Vaccine Aged Out No l onger eligible based on patient's age to complete this topic Meningococcal Vaccine Aged Out No moustapha ector eligible based on patient's age to complete this topic RSV Aged Out No longer eligi ble based on patient's age to complete this topic Procedures Procedure Name Priority Date/Time Associated Diagnosis Comments LIPID PANEL Routine 08/09/2015 7:15 AM CDT from Last 3 Months or Most Recently Relevant to Health Maintenance Results * (ABNORMAL) Lipid panel (08/09/2015 7:15 AM CDT) Cholesterol 162 100 - 200 mg/dL [facility] Triglycerides 312(H) 10 - 190 mg/dL [facility] HDL Cholesterol 28 0 - 40 mg/dL [facility] LDL Cholesterol 72 0 - 99 mg/dL [facility] Total Cholesterol/HDL Ratio 5.79 [facility] Comment: CHD RISK FACTOR RATIO RATIO MEN WOMEN 1/2 TIMES AVERAGE RISK 3.43 3.27 AVERAGE RISK 4.97 4.44 2 TIMES AVERAGE RISK 9.55 7.05 3 TIMES AVERAGE RISK 23.39 11.04 08/09/2015 7:15 AM CDT 08/09/2015 7:27 AM CDT us Jimmy Nicholson MD LAB BLOOD ORDERABLES Final Resul t [facility] from Last 3 Months or Most Recently Relevant to Health Maintenance Advance Directives * Full Code (Latest Code Status on File) Date Activated Date Inactivated Comments 11/27/2023 6:51 PM 11/28/2023 7:55 PM Care Teams Boat Builder And Repairer Relationship Specialty Start Date End Date Wallace Man DO [address] [place] [address] PCP - General Substitute School Nurse 11/27/23
[2024-07-09 23:29] VITALS: BP 132/74; PULSE 99; RESP 24; TEMP 36.7
== END 2024-07-09 23:29 | disposition home or self-care (01) ==
PROVIDERS: Emergency Provider Emergency Medicine Emergency Medical Services
DX: L08.9 Local infection of the skin and subcutaneous tissue, unspecified (principal); R06.02 Shortness of breath
CPT/HCPCS: 87631; 93005; 94761; 99284; A9270; J1100